=== PATIENT | male | born 2005 | race Caucasian/White ===

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

== ENCOUNTER 2025-07-16 12:57 | Outpatient (REF) | payer OTHER, SELFPAY | END 2025-07-16 12:58 | disposition home or self-care (01) | LOC: LBN 12:57 | PROVIDERS: PCP Nurse Practitioner Family; Visit Provider Physician Assistant | DX: L98.9 Disorder of the skin and subcutaneous tissue, unspecified (principal) | CPT/HCPCS: 87077; 87070; 87186; 87205 ==